=== PATIENT | male | born 1950 | race Two or more races ===

== ENCOUNTER 2021-10-11 18:04 | Emergency (ER) | payer OTHER ==
[~2021-10-11] VITALS: Ht 162.6 cm; Wt 72.6 kg
[2021-10-11] MEDS ORDERED: TOPROL XL25 M1 (18:08)
[2021-10-11] MEDS ORDERED: LIPITOR20 MG PO (18:08)
[2021-10-11] MEDS ORDERED: JANTOVEN1 MG PO (18:10)
== END 2021-10-11 22:03 | disposition home or self-care (01) ==
LOC: ER 18:04
DX: G40.89 Other seizures (principal); E11.9 Type 2 diabetes mellitus without complications; I10 Essential (primary) hypertension